=== PATIENT | male | born 1960 | race Caucasian/White ===

== ENCOUNTER 2017-06-17 21:12 | Emergency (ER) | payer OTHER ==
[~2017-06-17] VITALS: Ht 162.6 cm; Wt 75.0 kg
[2017-06-17 21:33] VITALS: BP 128/78; PULSE 101; RESP 16; TEMP 98.1; O2SAT 95
--- NOTE | 2017-06-17 22:15 | PD ---
HPI Chief Complaint: Psychiatric Symptoms Time Seen by Provider: 22:14 Travel History International Travel<30 days: No Contact w/Intl Traveler<30days: No Traveled to known affect area: No History of Present Illness HPI 57-year-old male with history of alcoholism presents emergency department under Thomas act for psychiatric evaluation. Patient states that he will eat relapsed 3 days ago. He has been binge drinking for the last 3 days. He told his today he was going to kill himself while he was intoxicated. Patient states he does not want to hurt himself or anybody else. He states he was feeling hopeless. Denies any other illicit drug use. Has no other symptoms to report at this time. [facility] Past Medical History Medical History: Denies Significant Hx Social History Tobacco Use: No Allergies-Medications (Allergen,Severity, Reaction): Coded Allergies: No Known Allergies (Unverified , 06/17/17) Review of Systems ROS Limitations: Intoxication Except as stated in HPI: all other systems reviewed are Neg Physical Exam Exam Limitations: Intoxication Narrative GENERAL: Well-nourished, clinically intoxicated male patient, lying in bed, tearful, no acute distress. SKIN: Focused skin assessment warm/dry. HEAD: Atraumatic. Normocephalic. EYES: Pupils equal and round. No scleral icterus. No injection or drainage. ENT: No nasal bleeding or discharge. Mucous membranes pink and moist. NECK: Trachea midline. No JVD. CARDIOVASCULAR: Regular rate and rhythm. No murmur appreciated. RESPIRATORY: No accessory muscle use. Clear to auscultation. Breath sounds equal bilaterally. GASTROINTESTINAL: Abdomen soft, non-tender, nondistended. Hepatic and splenic margins not palpable. MUSCULOSKELETAL: No obvious deformities. No clubbing. No cyanosis. No edema. NEUROLOGICAL: Awake and alert. No obvious cranial nerve deficits. Motor grossly within normal limits. Normal speech. Data Data Last Documented VS Vital Signs Date Time Temp Pulse Resp B/P (MAP) Pulse Ox O2 Delivery O2 Flow Rate FiO2 06/18/17 09:08 06/18/17 06:54 99.0 104 18 98 Room Air Orders Orders Complete Blood Count With Diff (06/17/17 22:14) Comprehensive Metabolic Panel (06/17/17 22:14) Thyroid Stimulating Hormone (06/17/17 22:14) Psych Screen (06/17/17 22:14) Drug Screen, Random Urine (06/17/17 22:14) Alcohol (Ethanol) (06/17/17 22:14) Alcohol Withdrawal Asmt-Ciwa ONCE (06/17/17 22:46) Ondansetron Inj (Zofran Inj) (06/17/17 23:00) Flumazenil Inj (Romazicon Inj) (06/17/17 23:00) Lorazepam (Ativan) (06/17/17 23:00) Lorazepam Inj (Ativan Inj) (06/17/17 23:00) Lorazepam (Ativan) (06/17/17 23:00) Lorazepam Inj (Ativan Inj) (06/17/17 23:00) Lorazepam Inj (Ativan Inj) (06/17/17 23:00) Lorazepam Inj (Ativan Inj) (06/17/17 23:00) Ed Discharge Order (06/18/17 08:48) Labs Laboratory Tests Test 06/17/17 22:30 06/18/17 02:48 White Blood Count 8.2 TH/MM3 Red Blood Count 5.15 MIL/MM3 Hemoglobin 17.0 GM/DL Hematocrit 48.0 % Mean Corpuscular Volume 93.3 FL Mean Corpuscular Hemoglobin 33.1 PG Mean Corpuscular Hemoglobin Concent 35.4 % Red Cell Distribution Width 13.6 % Platelet Count 250 TH/MM3 Mean Platelet Volume 6.3 FL Neutrophils (%) (Auto) 46.9 % Lymphocytes (%) (Auto) 36.7 % Monocytes (%) (Auto) 13.8 % Eosinophils (%) (Auto) 1.8 % Basophils (%) (Auto) 0.8 % Neutrophils # (Auto) 3.8 TH/MM3 Lymphocytes # (Auto) 3.0 TH/MM3 Monocytes # (Auto) 1.1 TH/MM3 Eosinophils # (Auto) 0.1 TH/MM3 Basophils # (Auto) 0.1 TH/MM3 CBC Comment DIFF FINAL Differential Comment Blood Urea Nitrogen 9 MG/DL Creatinine 0.76 MG/DL Random Glucose 88 MG/DL Total Protein 7.0 GM/DL Albumin 3.4 GM/DL Calcium Level 7.7 MG/DL Alkaline Phosphatase 78 U/L Aspartate Amino Transf (AST/SGOT) 19 U/L Alanine Aminotransferase (ALT/SGPT) 20 U/L Total Bilirubin 0.3 MG/DL Sodium Level 146 MEQ/L Potassium Level 3.5 MEQ/L Chloride Level 109 MEQ/L Carbon Dioxide Level 24.1 MEQ/L Anion Gap 13 MEQ/L Estimat Glomerular Filtration Rate 105 ML/MIN Thyroid Stimulating Hormone 3rd Gen 2.440 uIU/ML Ethyl Alcohol Level 359 MG/DL Urine Opiates Screen NEG Urine Barbiturates Screen NEG Urine Amphetamines Screen NEG Urine Benzodiazepines Screen NEG Urine Cocaine Screen NEG Urine Cannabinoids Screen NEG MDM Medical Decision Making Medical Screen Exam Complete: Yes Emergency Medical Condition: Yes Medical Record Reviewed: Yes Differential Diagnosis Intoxication versus substance induced mood disorder versus personality disorder versus depression Narrative Course 57-year-old male presents emergency department under Thomas act for psychiatric evaluation. Patient denies suicidal or homicidal ideations. He states that he has relapsed on alcohol and he did tell his that he wanted to kill himself , but he said this was not with any intent. Lab work is ordered for medical clearance. Pending no acute lab abnormality, patient will be medically cleared to undergo psychiatric screening for further evaluation and disposition. Mental health screening discussed with the patient. Psychiatric screen ordered. Diagnosis Primary Impression: Substance induced mood disorder Condition: Stable Binta Guevara Jun 17, 2017 22:14
[2017-06-17 22:43] LABS: AUTOMATED NEUTROPHIL # 3.8 TH/MM3 (1.8-7.7); BASOPHIL # 0.1 TH/MM3 (0-0.2); BASOPHIL % 0.8 % (0.0-2.0); EOSINOPHIL # 0.1 TH/MM3 (0-0.4); EOSINOPHIL % 1.8 % (0.0-4.0); LYMPH % 36.7 % (9.0-44.0); MEAN CELL VOLUME 93.3 FL (80.0-100.0); MEAN CORPUSCULAR HEMOGLOBIN 33.1 PG (27.0-34.0); MEAN CORPUSCULAR HGB CONC 35.4 % (32.0-36.0); MEAN PLATELET VOLUME 6.3 FL (7.0-11.0); MONO % 13.8 % (0.0-8.0); MONOCYTE # 1.1 TH/MM3 (0-0.9); NEUT % 46.9 % (16.0-70.0); PLATELET COUNT 250 TH/MM3 (150-450); RED BLOOD COUNT 5.15 MIL/MM3 (4.50-5.90); RED CELL DISTRIBUTION WIDTH 13.6 % (11.6-17.2); WHITE BLOOD COUNT 8.2 TH/MM3 (4.0-11.0)
[2017-06-17 22:53] VITALS: BP 159/101; PULSE 100; RESP 20; TEMP 98.8; O2SAT 95
[2017-06-17] MEDS ORDERED: ONDANSETRON HCL 4 MG/2 ML VIAL IV PUSH PRN (23:00)
[2017-06-17] MEDS ORDERED: LORazepam 2 MG/ML VIAL IV PUSH PRN ×4 (23:00)
[2017-06-17] MEDS ORDERED: LORazepam 1 MG TAB PO PRN (23:00)
[2017-06-17] MEDS ORDERED: LORazepam 2 MG TAB PO PRN (23:00)
[2017-06-17] MEDS ORDERED: FLUMAZENIL 0.5 MG/5 ML VIAL IV PUSH PRN (23:00)
[2017-06-17 23:01] LABS: ALBUMIN 3.4 GM/DL (3.4-5.0); AST (GOT) 19 U/L (15-37); BICARBONATE 24.1 MEQ/L (21.0-32.0); BLOOD UREA NITROGEN 9 MG/DL (7-18); CALCIUM 7.7 MG/DL (8.5-10.1); CHLORIDE 109 MEQ/L (98-107); CREATININE 0.76 MG/DL (0.60-1.30); GLOMERULAR FILTRATION RATE 105 ML/MIN (>89); GLUCOSE,RANDOM 88 MG/DL (74-106); SODIUM (NA) 146 MEQ/L (136-145)
[2017-06-17 23:02] LABS: ALT (GPT) 20 U/L (12-78)
[2017-06-17 23:12] LABS: ALKALINE PHOSPHATASE 78 U/L (45-117); TOTAL BILIRUBIN ADULT 0.3 MG/DL (0.2-1.0)
[2017-06-18 00:09] VITALS: BP 98/61; PULSE 104; RESP 18; O2SAT 95
[2017-06-18 06:54] VITALS: BP 152/75; PULSE 104; RESP 18; TEMP 99; O2SAT 98
--- NOTE | 2017-06-18 08:48 | PD ---
Physical Exam Date Seen by Provider: Jun 18, 2017 Time Seen by Provider: 08:47 Narrative 57-year-old male previously medically cleared for psychiatric evaluation, has been seen by psychiatric staff and deemed psychiatrically stable for discharge at this time. Patient is to follow-up as per psychiatric note. He remains medically stable at this time for discharge. Data Data Last Documented VS Vital Signs Date Time Temp Pulse Resp B/P (MAP) Pulse Ox O2 Delivery O2 Flow Rate FiO2 06/18/17 06:54 99.0 104 18 152/75 (100) 98 Room Air Orders Orders Complete Blood Count With Diff (06/17/17 22:14) Comprehensive Metabolic Panel (06/17/17 22:14) Thyroid Stimulating Hormone (06/17/17 22:14) Psych Screen (06/17/17 22:14) Drug Screen, Random Urine (06/17/17 22:14) Alcohol (Ethanol) (06/17/17 22:14) Alcohol Withdrawal Asmt-Ciwa ONCE (06/17/17 22:46) Ondansetron Inj (Zofran Inj) (06/17/17 23:00) Flumazenil Inj (Romazicon Inj) (06/17/17 23:00) Lorazepam (Ativan) (06/17/17 23:00) Lorazepam Inj (Ativan Inj) (06/17/17 23:00) Lorazepam (Ativan) (06/17/17 23:00) Lorazepam Inj (Ativan Inj) (06/17/17 23:00) Lorazepam Inj (Ativan Inj) (06/17/17 23:00) Lorazepam Inj (Ativan Inj) (06/17/17 23:00) Diet Regular Basic (06/18/17 Breakfast) Labs Laboratory Tests Test 06/17/17 22:30 06/18/17 02:48 White Blood Count 8.2 TH/MM3 Red Blood Count 5.15 MIL/MM3 Hemoglobin 17.0 GM/DL Hematocrit 48.0 % Mean Corpuscular Volume 93.3 FL Mean Corpuscular Hemoglobin 33.1 PG Mean Corpuscular Hemoglobin Concent 35.4 % Red Cell Distribution Width 13.6 % Platelet Count 250 TH/MM3 Mean Platelet Volume 6.3 FL Neutrophils (%) (Auto) 46.9 % Lymphocytes (%) (Auto) 36.7 % Monocytes (%) (Auto) 13.8 % Eosinophils (%) (Auto) 1.8 % Basophils (%) (Auto) 0.8 % Neutrophils # (Auto) 3.8 TH/MM3 Lymphocytes # (Auto) 3.0 TH/MM3 Monocytes # (Auto) 1.1 TH/MM3 Eosinophils # (Auto) 0.1 TH/MM3 Basophils # (Auto) 0.1 TH/MM3 CBC Comment DIFF FINAL Differential Comment Blood Urea Nitrogen 9 MG/DL Creatinine 0.76 MG/DL Random Glucose 88 MG/DL Total Protein 7.0 GM/DL Albumin 3.4 GM/DL Calcium Level 7.7 MG/DL Alkaline Phosphatase 78 U/L Aspartate Amino Transf (AST/SGOT) 19 U/L Alanine Aminotransferase (ALT/SGPT) 20 U/L Total Bilirubin 0.3 MG/DL Sodium Level 146 MEQ/L Potassium Level 3.5 MEQ/L Chloride Level 109 MEQ/L Carbon Dioxide Level 24.1 MEQ/L Anion Gap 13 MEQ/L Estimat Glomerular Filtration Rate 105 ML/MIN Thyroid Stimulating Hormone 3rd Gen 2.440 uIU/ML Ethyl Alcohol Level 359 MG/DL Urine Opiates Screen NEG Urine Barbiturates Screen NEG Urine Amphetamines Screen NEG Urine Benzodiazepines Screen NEG Urine Cocaine Screen NEG Urine Cannabinoids Screen NEG MDM Medical Record Reviewed: Yes Supervised Visit with NESSA: Yes Narrative Course 57-year-old male previously medically cleared for psychiatric evaluation, has been seen by psychiatric staff and deemed psychiatrically stable for discharge at this time. Patient is to follow-up as per psychiatric note. He remains medically stable at this time for discharge. Diagnosis Primary Impression: Substance induced mood disorder Referrals: [facility] (Out patient) Patient Instructions: General Instructions, Mood Disorders (ED), Alcohol Use Disorder (ED) Departure Forms: Tests/Procedures Additional Instruction: Follow up with primary care provider. Follow up with Anatoly Carlisle. Return to Emergency Department if symptoms persist or worsen. Disposition: 01 DISCHARGE HOME Condition: Stable Gwyn Blankenship Jun 18, 2017 08:48
--- NOTE | 2017-06-18 09:43 | PD.PSY.CON ---
Provisional Diagnosis Admission Date [place] I. Alcohol-induced mood disorder, alcohol use disorder History of Present Illness Service Psychiatry Consult Requested By ER Reason for Consult Suicidal ideation Primary Care Physician No Primary Care Physician HPI The patient is 57-year-old man, domiciled with a roommate, Annabelle, but , employed, with psychiatric history of alcoholism, no previous psychiatric hospitalizations, the previously Thomas acted, no suicidal attempts, no significant medical history, who was brought to emergency department under Thomas act for psychiatric evaluation. Patient states that he will eat relapsed 3 days ago. He has been binge drinking for the last 3 days. He told his today he was going to kill himself while he was intoxicated. Patient states he does not want to hurt himself or anybody else. He states he was feeling hopeless. Denies any other illicit drug use. Has no other symptoms to report at this time. The patient was seen today for psychiatric evaluation, he was calm, cooperative, clinically sober. The patient reports that he does not even remember what he stated to his . Patient said that most part he was very drunk when he did that. Patient is future oriented, stating that he needs to be released in order to go to work. The patient denies depressive symptoms, he denies suicidal or homicidal ideation, he denies visual and auditory hallucinations. The patient says that he is an alcoholic, declines going to detox. He denies the use of illegal drugs. Review of Systems Constitutional: DENIES: Diaphoretic episodes, Fatigue, Fever, Weight gain, Weight loss, Chills, Dizziness, Change in appetite, Night Sweats Endocrine: DENIES: Heat/cold intolerance, Polydipsia, Polyuria, Polyphagia Eyes: DENIES: Blurred vision, Diplopia, Eye inflammation, Eye pain, Vision loss , Photosensitivity, Double Vision Ears, nose, mouth, throat: DENIES: Tinnitus, Hearing loss, Vertigo, Nasal discharge, Oral lesions, Throat pain, Hoarseness, Ear Pain, Running Nose, Epistaxis, Sinus Pain, Toothache, Odynophagia Respiratory: DENIES: Apneas, Cough, Snoring, Wheezing, Hemoptysis, Sputum production, Shortness of breath Cardiovascular: DENIES: Chest pain, Palpitations, Syncope, Dyspnea on Exertion , PND, Lower Extremity Edema, Orthopnea, Claudication Gastrointestinal: DENIES: Abdominal pain, Black stools, Bloody stools, Constipation, Diarrhea, Nausea, Vomiting, Difficulty Swallowing, Anorexia Genitourinary: DENIES: Sexual dysfunction, Urinary frequency, Urinary incontinence, Urgency, Hematuria, Dysuria, Nocturia, Penile Discharge, Testicular Pain, Testicular Swelling Musculoskeletal: DENIES: Joint pain, Muscle aches, Stiffness, Joint Swelling, Back pain, Neck pain Integumentary: DENIES: Abnormal pigmentation, Nail changes, Pruritus, Rash Hematologic/lymphatic: DENIES: Bruising, Lymphadenopathy Immunologic/allergic: DENIES: Eczema, Urticaria Neurologic: DENIES: Abnormal gait, Headache, Localized weakness, Paresthesias, Seizures, Speech Problems, Tremor, Poor Balance Psychiatric: DENIES: Anxiety, Confusion, Mood changes, Depression, Hallucinations, Agitation, Suicidal Ideation, Homicidal Ideation, Delusions Past Family Social History Coded Allergies: No Known Allergies (Unverified , 06/17/17) Family Psych History He has a brother who committed suicide Social History Patient was born and raised in [place], he lives in [facility] with a roommate, he is but , employed in a car dealership, he has a college degree Patient's Strengths (min. 2) Verbal Physical Exam Vital Signs Vital Signs Date Time Temp Pulse Resp B/P (MAP) Pulse Ox O2 Delivery O2 Flow Rate FiO2 06/18/17 09:08 06/18/17 06:54 99.0 104 18 98 Room Air Lab Results Test 06/17/17 22:30 06/18/17 02:48 White Blood Count 8.2 TH/MM3 Red Blood Count 5.15 MIL/MM3 Hemoglobin 17.0 GM/DL Hematocrit 48.0 % Mean Corpuscular Volume 93.3 FL Mean Corpuscular Hemoglobin 33.1 PG Mean Corpuscular Hemoglobin Concent 35.4 % Red Cell Distribution Width 13.6 % Platelet Count 250 TH/MM3 Mean Platelet Volume 6.3 FL Neutrophils (%) (Auto) 46.9 % Lymphocytes (%) (Auto) 36.7 % Monocytes (%) (Auto) 13.8 % Eosinophils (%) (Auto) 1.8 % Basophils (%) (Auto) 0.8 % Neutrophils # (Auto) 3.8 TH/MM3 Lymphocytes # (Auto) 3.0 TH/MM3 Monocytes # (Auto) 1.1 TH/MM3 Eosinophils # (Auto) 0.1 TH/MM3 Basophils # (Auto) 0.1 TH/MM3 CBC Comment DIFF FINAL Differential Comment Blood Urea Nitrogen 9 MG/DL Creatinine 0.76 MG/DL Random Glucose 88 MG/DL Total Protein 7.0 GM/DL Albumin 3.4 GM/DL Calcium Level 7.7 MG/DL Alkaline Phosphatase 78 U/L Aspartate Amino Transf (AST/SGOT) 19 U/L Alanine Aminotransferase (ALT/SGPT) 20 U/L Total Bilirubin 0.3 MG/DL Sodium Level 146 MEQ/L Potassium Level 3.5 MEQ/L Chloride Level 109 MEQ/L Carbon Dioxide Level 24.1 MEQ/L Anion Gap 13 MEQ/L Estimat Glomerular Filtration Rate 105 ML/MIN Thyroid Stimulating Hormone 3rd Gen 2.440 uIU/ML Ethyl Alcohol Level 359 MG/DL Urine Opiates Screen NEG Urine Barbiturates Screen NEG Urine Amphetamines Screen NEG Urine Benzodiazepines Screen NEG Urine Cocaine Screen NEG Urine Cannabinoids Screen NEG Mental Status Examination Appearance: Appropriate Consciousness: Alert Orientation: x4 Motor Activity: Normal gait Speech: Unremarkable Language: Adequate Fund of Knowledge: Adequate Attention and Concentration: Adequate Memory: Unremarkable Mood: Appropriate Affect: Appropriate Thought Process & Associations: Intact Thought Content: Appropriate Hallucination Type: None Delusion Type: None Suicidal Ideation: No Suicidal Plan: No Suicidal Intention: No Homicidal Ideation: No Homicidal Plan: No Homicidal Intention: No Insight: Adequate Judgment: Adequate Assessment & Plan Problem List: (1) Alcohol abuse with alcohol-induced mood disorder ICD Codes: F10.14 - Alcohol abuse with alcohol-induced mood disorder Assessment & Plan: Psychiatric evaluation today the patient does not present any evidence of depressive symptoms, anxiety, maykel or psychosis. He is clinically sober. Logical coherent and relevant. Denies peaceful and auditory hallucinations, suicidal or homicidal ideation. He does not meet criteria for involuntary psychiatric admission at this moment. Thomas act will be lifted Assessment & Plan Estimated LOS: Dipesh Hernandez MD Jun 18, 2017 09:43
== END 2017-06-18 09:11 | disposition home or self-care (01) ==
LOC: NEPJ 21:12
DX: F10.14 Alcohol abuse with alcohol-induced mood disorder (principal); Y90.8 Blood alcohol level of 240 mg/100 ml or more; R45.851 Suicidal ideations
CPT/HCPCS: 80053; 80307; 84443; 85025; 99283